=== PATIENT | male | born 1975 | race African-American/Black ===

== ENCOUNTER 2020-10-25 10:02 | Emergency (ER) | payer OTHER ==
[~2020-10-25] VITALS: Ht 165.1 cm; Wt 83.9 kg
[2020-10-25 11:47] LABS: ABSOLUTE NEUTROPHILS 6.8 thou/uL (1.4-8.2); BASOPHILS 0.2 % (0.0-2.0); EOSINOPHILS 1.1 % (0.0-3.0); HEMATOCRIT 44.7 % (42.0-52.0); LYMPHOCYTES 15.4 % (24.0-44.0); MCH 32.1 pg (26.0-34.0); MCHC 33.6 g/dL (28.0-37.0); MCV 95.5 fL (80.0-100.0); MONOCYTES 12.1 % (1.0-8.0); PLATELET COUNT 336 thou/uL (150-400); POLYS 71.2 % (36.0-66.0); RBC 4.68 mil/uL (4.50-6.00); RDW 13.5 % (10.5-14.5); WBC 9.5 thou/uL (4.0-11.0)
[2020-10-25 11:54] LABS: URINE BILIRUBIN NEGATIVE (Negative); URINE BLOOD NEGATIVE (Negative); URINE CLARITY CLEAR; URINE COLOR YELLOW; URINE GLUCOSE-RANDOM* NEGATIVE (Negative); URINE KETONES 1+ (Negative); URINE LEUKOCYTES-REFLEX NEGATIVE (Negative); URINE NITRITE-REFLEX NEGATIVE (Negative); URINE PROTEIN (DIPSTICK) NEGATIVE (Negative); URINE SPECIFIC GRAVITY >= 1.030 (1.005-1.035)
[2020-10-25 12:04] LABS: AMP/METHAMP Negative (Negative); BARBITURATES Negative (Negative); BENZODIAZEPINES Negative (Negative); COCAINE Negative (Negative); METHADONE Negative (Negative); OPIATES Negative (Negative); PCP POSITIVE (Negative)
[2020-10-25 12:18] LABS: ANION GAP 8 mmol/L (7-16); BUN 13 mg/dL (7-18); CALCIUM 9.6 mg/dL (8.5-10.1); CHLORIDE 108 mmol/L (98-107); CO2 27 mmol/L (21-32); CREATININE 1.1 mg/dL (0.7-1.3); GLUCOSE 106 mg/dL (74-106); POTASSIUM 4.2 mmol/L (3.5-5.1); SODIUM 143 mmol/L (136-145)
[2020-10-25 12:29] LABS: ALBUMIN 3.6 g/dL (3.4-5.0); DIRECT BILIRUBIN 0.1 mg/dL (<0.1-0.2); PHOSPHORUS 3.6 mg/dL (2.6-4.7); SGOT 16 U/L (15-37); SGPT 28 U/L (16-63); TOTAL BILIRUBIN 0.5 mg/dL (0.2-1.0); TOTAL PROTEIN 7.6 g/dL (6.4-8.2); TROPONIN-I <0.06 ng/mL (<0.06)
[2020-10-25 13:04] LABS: SALICYLATE < 2.8 mg/dL (2.8-20.0)
[2020-10-25 14:50] VITALS: BP 118/61
--- NOTE | 2020-10-25 16:37 | EKG ---
[address] [place] [address] ELECTROCARDIOGRAM REPORT Name: TIFF MCGRATH Room #: DEP Mary#: [id number] Admission: 10/25/20 Attend Phys: Discharge: 10/25/20 Date of : 77 Report #: [id number] [facility] ED Test Date: 2020-10-25 Test Time: 10:20:53 Pat Name: TFIF MCGRATH Department: Room: Gender: [employer] General Sales Manager: DHARA : 1975 Requested By: Manjit Solo Order Number: [id number] MD: Harley Peters Measurements Intervals [place] Rate: 49 P: 53 MN: 169 QRS: 63 QRSD: 100 T: 31 QT: 456 QTc: 412 Interpretive Statements Sinus bradycardia RSR' in V1 or V2, right VCD No previous ECG available for comparison Electronically Signed On 10-25-2020 16:37:10 CDT by Harley Peters [email or web address] <ELECTRONICALLY SIGNED> By: Harley Peters MD, [facility] 10/25/20 1637 1020 1020 Harley Peters MD, FACC /EPI
== END 2020-10-25 14:50 | disposition home or self-care (01) ==
LOC: ER 10:02
PROVIDERS: Emergency Medicine
DX: R56.9 Unspecified convulsions (principal); F16.10 Hallucinogen abuse, uncomplicated; F12.20 Cannabis dependence, uncomplicated; J44.9 Chronic obstructive pulmonary disease, unspecified; F17.210 Nicotine dependence, cigarettes, uncomplicated